=== PATIENT | male | born 1950 | race Caucasian/White ===

== ENCOUNTER → 2017-03-25 | Outpatient (CLI) | payer MEDICARE | END | disposition home or self-care (01) | LOC: GMAB 10:48 | PROVIDERS: ATTEND Family Medicine | DX: Z12.5 Encounter for screening for malignant neoplasm of prostate (principal); E29.1 Testicular hypofunction; I10 Essential (primary) hypertension | CPT/HCPCS: 84403; 84443; G0103 ==

== ENCOUNTER → 2017-09-10 | Outpatient (CLI) | payer MEDICARE ==
--- NOTE | 2017-09-10 10:05 | MRI ---
EXAM DESCRIPTION: Lumbar Spine w/o Contrast CLINICAL HISTORY: 66 years, Male, SCIATICA right hip and leg pain COMPARISON: None available FINDINGS: Sagittal and axial sequences. Bone marrow signal is heterogeneous but not worrisome. Schmorl's nodes present inferiorly at L2-L3 and L4. Conus terminates at L1. Mild right lumbar curvature is probably degenerative change. Probable benign lower pole left renal cyst about 1 cm, but this region is incompletely imaged L1-2 within normal limits. At L2-3 narrowing with diffuse bulging disc osteophyte asymmetric to the left. Facet degenerative change. Left foraminal narrowing and lateral recess encroachment. At L3-4 narrowing with diffuse bulging disc osteophyte asymmetric to the left. Facet degenerative change. Impingement on the left exit foramen and lateral recess. At L4-5 about 3 mm of retrolisthesis with broad-based right-sided protrusion about 3 mm. This extends into the right exit foramen. Facet degenerative change. Lateral recess encroachment and impingement the exiting right L4 root. At L5-S1 diffuse bulging disc asymmetric to the right. Impingement exiting right L5 root. Mild facet degenerative change. IMPRESSION: 1. Retrolisthesis L4-5 with broad-based right-sided protrusion. Impingement on the exiting right L4 root and right lateral recess 2. Bulging disc asymmetric to the right L5-S1. Slight impingement on the exiting right L5 root 3. Bulging disc L2-3 and L3-4 asymmetric to the left. Impingement on the lateral recess and left exit foramen at this level Electronically signed by: Khanh Candelaria MD 09/10/2017 10:04 AM CDT
== END | disposition home or self-care (01) ==
LOC: MRI 09:17
PROVIDERS: ATTEND Family Medicine
DX: M51.17 Intervertebral disc disorders with radiculopathy, lumbosacral region (principal)

== ENCOUNTER → 2018-06-26 | Outpatient (CLI) | payer MEDICARE | LOC: GMAE 10:47 | PROVIDERS: ATTEND Family Medicine | DX: I10 Essential (primary) hypertension (principal) ==

== ENCOUNTER → 2019-08-05 | Outpatient (CLI) | payer MEDICARE | LOC: GMAE 10:48 | PROVIDERS: ATTEND Family Medicine | DX: I10 Essential (primary) hypertension (principal); E77.9 Disorder of glycoprotein metabolism, unspecified; Z12.5 Encounter for screening for malignant neoplasm of prostate | CPT/HCPCS: 84443; G0103 ==

== ENCOUNTER → 2020-10-05 | Outpatient (CLI) | payer MEDICARE | LOC: GMAE 10:59 | PROVIDERS: ATTEND Family Medicine | DX: Z12.5 Encounter for screening for malignant neoplasm of prostate (principal); I10 Essential (primary) hypertension; E11.9 Type 2 diabetes mellitus without complications; E78.2 Mixed hyperlipidemia | CPT/HCPCS: 84439; 84443; G0103 ==